=== PATIENT | female | born 1980 | race Caucasian/White ===

== ENCOUNTER 2025-07-22 21:00 | Emergency (ER) | payer SELFPAY ==
[2025-07-22 21:02] VITALS: BP 120/66
[2025-07-23 04:17] VITALS: BP 95/49
[2025-07-23 04:19] VITALS: BMI 23.6
[2025-07-23 05:20] VITALS: BP 100/55
--- NOTE | 2025-07-23 06:31 | ED.GENMED ---
History of Present Illness
General
Chief Complaint: Musculo-Skeletal Complaint
Source: patient
Exam Limitations: none
Time Seen by Provider: 07/23/25 00:33
Nursing documentation reviewed up to this point in time: agreed with
History of Present Illness
History of Present Illness:
44-year-old female with history as noted presents to the ER for evaluation of back pain. Patient reports pain in the left upper mid back for the past 2 weeks. She says that pain started after she slept in an unusual position 1 night. She reports
a sharp pain left mid to upper back in the region of the scapula. It is worse with certain movements particularly with movement of the left shoulder and arm. No clear relieving factors noted. She denies any associated chest pain or shortness of
breath or any other acute complaints. She does note that she carries a heavy bag on her shoulder regularly.
Review of Systems
Review of Systems
All Other Systems: ROS reviewed and negative except as documented in HPI and ROS
Respiratory: Denies trouble breathing
Cardiac: Denies chest pain
Musculoskeletal: Reports back pain
Phy Exam
Physical Exam
Physical Exam:
General: Awake, alert; no acute distress
Head: Normocephalic, atraumatic
Eyes: Conjunctiva normal
Throat: Airway intact, handling secretions
Neck: Trachea midline, full range of motion without pain
Lungs: Clear to auscultation bilaterally, no wheezing, rales, rhonchi
Heart: Regular rate and rhythm, no murmurs, gallops, or rubs
Back: Patient has no midline tenderness in the thoracic or lumbar spine, no spinal step-offs, mild tenderness medial left scapula
Neuro: Cranial nerves grossly intact, speech fluid, motor and sensory intact in extremities, ambulatory
Skin: No rash in area of concern
Extremities: No edema in extremities, equal pulses in all extremities
Scores
Heart Failure Risk
Heart Failure Risk Score: Not Applicable
Heart Score for Chest Pain Patients
STEMI patient?: Not applicable
Withdrawal Assessment of Alcohol
Withdrawal Assessment Completed?: Not applicable
Course
Orders/Labs/Results
Orders:
Orders
07/23/25 05:04
Ketorolac [Toradol] 30 mg IM NOW STA
07/23/25 21:05
CR Thoracic Spine 3 Views Urgent
Reason For Exam: upper back pain
Vital Signs
Initial and Last Documented VS:
Initial Vital Signs
Temp Pulse Resp BP Pulse Ox
36.7 C 84 16 120/66 98
07/22/25 21:02 07/22/25 21:02 07/22/25 21:02 07/22/25 21:02 07/22/25 21:02
Last Documented Vital Signs
Temp Pulse Resp BP Pulse Ox
36.7 C 78 18 100/55 99
07/22/25 21:02 07/23/25 05:20 07/23/25 05:20 07/23/25 05:20 07/23/25 05:20
MDM/Problems Addressed
Differential Diagnosis Includes:
Radiculopathy, arthritis/degenerative disease, pneumothorax less likely; nothing clinically to suggest that this is a PE, patient PERC negative no indication for further workup for this diagnosis in my judgment
MDM/Problems Addressed:
44-year-old female presents with left mid back/scapular pain worse with movement over the past 2 weeks. Vitals and exam as above. X-ray shows some degenerative disease but no acute abnormalities. Suspect it could be pinched nerve versus
paraspinal muscle strain. Can trial Medrol pack, advised to trial NSAIDs. Provided some exercises that may help with back pain. Stable for discharge.
*Radiology
Radiology exam reviewed: preliminary read by ED provider
*Pulse Oximetry
SaO2: 99
Oxygen Mode of Delivery: Room air
Patient hypoxic: no (99%)
*Critical Care Note
Total Time (30-74mins, 75-104mins- exclusive of procedures): Not Applicable
Data Reviewed
Source: patient
ED Attending Note
-
Portions of this chart may have been created with voice recognition software.� Occasional wrong word or��sound alike� substitutions may have occurred due to the inherent limitations of voice recognition software.
Discharge Plan
Departure
Patient Disposition: Home (Routine Discharge)
Date of Disposition: 07/23/25
Time of Disposition: 05:16
Patient with high blood pressure during this ER visit?: No
Discharge Problem:
Back pain
Instructions: Radiculopathy of the neck and back (including sciatica), Exercises for Upper Back Pain
Prescriptions:
New
methylprednisolone [Medrol (Yong)] 4 mg tablets,dose pack
See Rx Instructions .ROUTE .COMPLEX Qty: 21 0RF
Rx Instructions:
for 6 days
No Action
naproxen sodium [Aleve] 220 mg Capsule
220 mg PO Q12H PRN (Reason: pain)
Activity Restrictions/Additional Instructions:
Thank you for visiting the Emergency Department at [facility].
1. Please schedule a follow up appointment as directed. Call first thing tomorrow morning to make an appointment.
2. If indicated, please take your medications as instructed and indicated on discharge paperwork.
3. If any of your symptoms do not improve, or persist, or become more severe within 6-12 hours, please return to the emergency department for further care.
4. Please return to the emergency department if you develop a headache, neck pain/stiffness, fever greater than 100.4F, chest pain, shortness of breath, persistent nausea, vomiting, slurred speech, difficulty walking, numbness/tingling, weakness,
signs of infection or any other symptoms that are worrisome to you.
Please call [phone] if you have any questions.
Interventions
Interventions:
*Risk Screen - Suicide Last Done: 07/22/25 21:04
*General Assessment Last Done: 07/22/25 21:04
*Neglect/Abuse Screening Last Done: 07/22/25 21:04
*ED- Fall Risk Assessment Last Done: 07/23/25 04:17
*ED COVID-19 Vaccine History Last Done: 07/23/25 04:17
*Nursing Disposition Last Done: 07/23/25 05:40
ED-Musculoskeletal Assessment Last Done: 07/23/25 04:20
Discharge Date and Time
Discharge Date/Time: 07/23/25 05:44
Print Language: ARABIC
== END 2025-07-23 05:44 | disposition home or self-care (01) ==
LOC: EMR 21:00
PROVIDERS: EMERGENCY PHYSICIAN Emergency Medicine
DX: M54.6 Pain in thoracic spine (principal)
CPT/HCPCS: 99283; 96372; 72072